=== PATIENT | female | born 1980 | race Caucasian/White ===

== ENCOUNTER 2017-06-05 15:29 | Inpatient (IN) | payer MEDICAID ==
[~2017-06-05] VITALS: Ht 157.5 cm; Wt 107.0 kg
[2017-06-05 16:46] LABS: microscopic required? NO
[2017-06-05 17:01] LABS: UA SPECIFIC GRAVITY 1.025 (1.005-1.035); urine erythrocyte NEGATIVE (NEGATIVE)
[2017-06-05 17:05] LABS: CALCIUM 9.3 mg/dL (8.5-10.1); CHLORIDE SERUM 105 mmol/L (98-107); GFR1 > 60 mL/min; GLUCOSE SERUM 96 mg/dL (74-106); POTASSIUM SERUM 4.3 mmol/L (3.5-5.1); SODIUM SERUM 144 mmol/L (136-145)
[2017-06-05 17:07] LABS: BASOPHIL % 0.3 % (0-2); PLATELET COUNT 235 x10^3mcL (130-400)
[2017-06-05 17:10] LABS: ALBUMIN 3.3 g/dL (3.4-5.0); ALKALINE PHOSPHATASE 97 U/L (46-116); ALT/SGPT 36 U/L (14-59); AST/SGOT 19 U/L (15-37); BILIRUBIN TOTAL 0.2 mg/dL (0.20-1.00); LIPASE 185 IU/L (73-393); TOTAL PROTEIN, SERUM 7.6 g/dL (6.4-8.2)
[2017-06-05 20:32] LABS: CHOLESTEROL/HDL RATIO 4.4; MAGNESIUM 2.1 mg/dL (1.8-2.4); PHOSPHOROUS 3.3 mg/dL (2.5-4.9)
[2017-06-05 20:35] LABS: AMPHETAMINE QUAL UR NONE DETECTED (NEG <=1000)
[2017-06-05 20:39] LABS: T3 TOTAL 1.3 ng/mL
[2017-06-05 20:45] LABS: FREE T4 1.02 ng/dL (0.76-1.46); FREE THYROXINE INDEX 2.3 ug/dL (1.4-4.5); T4(THYROXINE) 8.3 ug/dL (4.7-13.3)
[2017-06-05 21:35] VITALS: BP 116/59
[2017-06-06 06:14] VITALS: BP 117/46
[2017-06-06 06:15] LABS: BASOPHIL % 0.4 % (0-2); PLATELET COUNT 210 x10^3mcL (130-400)
[2017-06-06 06:29] LABS: RED CELL DISTRIBUTION WIDTH 14.9 % (11.5-14.5)
[2017-06-06 06:32] LABS: CALCIUM 8.5 mg/dL (8.5-10.1); CARBON DIOXIDE 27.3 mmol/L (21-32); CHLORIDE SERUM 111 mmol/L (98-107); CREATININE SERUM 0.9 mg/dL (0.6-1.0); GFR1 > 60 mL/min; GLUCOSE SERUM 92 mg/dL (74-106); POTASSIUM SERUM 4.8 mmol/L (3.5-5.1); SODIUM SERUM 146 mmol/L (136-145)
[2017-06-06 08:23] VITALS: BP 113/47
[2017-06-06 17:34] VITALS: BP 124/57
[2017-06-06 20:31] VITALS: BP 112/56
[2017-06-07 04:54] VITALS: BP 110/55
[2017-06-07 06:17] LABS: BASOPHIL % 0.2 % (0-2); PLATELET COUNT 205 x10^3mcL (130-400)
[2017-06-07 06:28] LABS: CALCIUM 8.5 mg/dL (8.5-10.1); CARBON DIOXIDE 22.8 mmol/L (21-32); CHLORIDE SERUM 107 mmol/L (98-107); CREATININE SERUM 0.9 mg/dL (0.6-1.0); GFR1 > 60 mL/min; GLUCOSE SERUM 94 mg/dL (74-106); POTASSIUM SERUM 4.5 mmol/L (3.5-5.1); SODIUM SERUM 139 mmol/L (136-145)
[2017-06-07 06:46] LABS: RED CELL DISTRIBUTION WIDTH 14.9 % (11.5-14.5)
[2017-06-07 08:10] VITALS: BP 124/55
[2017-06-07 13:12] VITALS: BP 113/47
[2017-06-07 18:58] VITALS: BP 110/43
[2017-06-07 21:03] VITALS: BP 94/59
[2017-06-08 06:07] VITALS: BP 132/66
[2017-06-08 06:46] LABS: CALCIUM 8.9 mg/dL (8.5-10.1); CARBON DIOXIDE 27.4 mmol/L (21-32); CHLORIDE SERUM 108 mmol/L (98-107); GFR1 > 60 mL/min; GLUCOSE SERUM 93 mg/dL (74-106); POTASSIUM SERUM 4.4 mmol/L (3.5-5.1); SODIUM SERUM 144 mmol/L (136-145)
[2017-06-08 06:54] LABS: BASOPHIL % 0.4 % (0-2); PLATELET COUNT 192 x10^3mcL (130-400)
[2017-06-08 07:09] LABS: RED CELL DISTRIBUTION WIDTH 15.1 % (11.5-14.5)
[2017-06-08 07:50] VITALS: BP 139/61
[2017-06-08 09:04] VITALS: BP 120/56
[2017-06-08 10:08] VITALS: Ht 157.5 cm; Wt 107.0 kg
[2017-06-08 14:13] VITALS: BP 139/62
[2017-06-08 17:06] VITALS: BP 109/47
[2017-06-08 20:00] VITALS: BP 142/58
[2017-06-09 04:53] VITALS: BP 127/72
[2017-06-09 09:28] VITALS: BP 108/69
[2017-06-09] MEDS ORDERED: NAP500 PO (09:35)
[2017-06-09] MEDS ORDERED: KEFLEX500 M1 PO (09:36)
[2017-06-09] MEDS ORDERED: BD LACTINEX1.4 MG PO (09:37)
[2017-06-09 10:27] VITALS: BP 108/69
[2017-06-09] MEDS ORDERED: NOR10T PO (10:40)
== END 2017-06-09 11:40 | disposition home or self-care (01) | DRG 227 ==
LOC: ED 15:29 → DU 19:28 → MU 06-08 17:59
PROVIDERS: Emergency Medicine; Family Medicine Sports Medicine; Surgery
PROC: 0WUF0JZ Supplement Abdominal Wall with Synthetic Substitute, Open Approach (ICD-10-PCS; principal; 2017-06-06 10:00)
DX: K43.9 Ventral hernia without obstruction or gangrene (principal); E87.0 Hyperosmolality and hypernatremia; I10 Essential (primary) hypertension; F17.210 Nicotine dependence, cigarettes, uncomplicated; E78.5 Hyperlipidemia, unspecified; E78.1 Pure hyperglyceridemia; E86.0 Dehydration; E44.1 Mild protein-calorie malnutrition; D64.9 Anemia, unspecified; Z68.42 Body mass index [BMI] 45.0-49.9, adult; Z90.49 Acquired absence of other specified parts of digestive tract; Z90.5 Acquired absence of kidney; Z90.710 Acquired absence of both cervix and uterus; Z83.3 Family history of diabetes mellitus; Z85.53 Personal history of malignant neoplasm of renal pelvis
CPT/HCPCS: 84439; 94150; C1781; J0330; J0690; J1644; J2250; J2270; J2405; J2704; J2710; J3010; J3490; J7030; J7120; J8597

== ENCOUNTER 2018-04-10 13:43 | Emergency (ER) | payer MEDICAID ==
[~2018-04-10] VITALS: Ht 157.5 cm; Wt 99.3 kg
[~2018-04-10 13:43] MED LIST: BD LACTINEX1.4 MG PO; KEFLEX500 M1 PO; NAP500 PO; NOR10T PO
[2018-04-10 13:45] VITALS: Ht 157.5 cm; Wt 99.3 kg
[2018-04-10 15:48] LABS: microscopic required? NO
[2018-04-10 16:03] LABS: BASOPHIL % 1.1 % (0-2); PLATELET COUNT 237 x10^3mcL (130-400); RED CELL DISTRIBUTION WIDTH 14.3 % (11.5-14.5)
[2018-04-10 16:08] LABS: CALCIUM 8.8 mg/dL (8.5-10.1); CARBON DIOXIDE 28.1 mmol/L (21-32); CREATININE SERUM 1.1 mg/dL (0.6-1.0); POTASSIUM SERUM 4.5 mmol/L (3.5-5.1)
[2018-04-10 16:11] LABS: UA SPECIFIC GRAVITY 1.015 (1.005-1.035); urine erythrocyte NEGATIVE (NEGATIVE)
[2018-04-10 16:12] LABS: ALBUMIN 3.3 g/dL (3.4-5.0); BILIRUBIN TOTAL 0.3 mg/dL (0.20-1.00); TOTAL PROTEIN, SERUM 7.7 g/dL (6.4-8.2)
[2018-04-10 20:54] VITALS: BP 106/68
== END 2018-04-10 20:54 | disposition left against medical advice (07) ==
LOC: ED 13:43
PROVIDERS: Emergency Medicine
DX: R51 Headache (principal); R42 Dizziness and giddiness; R11.10 Vomiting, unspecified; H57.89 Other specified disorders of eye and adnexa; I10 Essential (primary) hypertension; Z90.89 Acquired absence of other organs
CPT/HCPCS: J1885; J2270; J2765

== ENCOUNTER 2019-02-17 23:55 | Emergency (ER) | payer SELFPAY ==
[~2019-02-17] VITALS: Ht 167.6 cm; Wt 101.6 kg
[2019-02-18 00:02] VITALS: Ht 167.6 cm; Wt 101.6 kg
[2019-02-18 00:40] LABS: BASOPHIL % 1.3 % (0-2); PLATELET COUNT 222 x10^3mcL (130-400); RED CELL DISTRIBUTION WIDTH 14.5 % (11.5-14.5)
[2019-02-18 00:58] LABS: CALCIUM 8.4 mg/dL (8.5-10.1); CHLORIDE SERUM 105 mmol/L (98-107); GFR1 > 60 mL/min; GLUCOSE SERUM 108 mg/dL (74-106); POTASSIUM SERUM 3.9 mmol/L (3.5-5.1); SODIUM SERUM 139 mmol/L (136-145)
[2019-02-18 01:02] LABS: ALKALINE PHOSPHATASE 108 U/L (46-116); ALT/SGPT 27 U/L (14-59); AST/SGOT 13 U/L (15-37); BILIRUBIN TOTAL 0.18 mg/dL (0.20-1.00); TOTAL PROTEIN, SERUM 7.2 g/dL (6.4-8.2)
[2019-02-18 01:04] LABS: ALBUMIN 3.1 g/dL (3.4-5.0)
[2019-02-18 03:26] VITALS: BP 117/65
== END 2019-02-18 03:26 | disposition home or self-care (01) ==
LOC: ED 23:55
PROVIDERS: Student in an Organized Health Care Education/Training Program
DX: G89.29 Other chronic pain (principal); M54.5 Low back pain; R10.814 Left lower quadrant abdominal tenderness; I10 Essential (primary) hypertension; Z98.890 Other specified postprocedural states
CPT/HCPCS: 36415; J1885; J2270; J2405

== ENCOUNTER 2019-07-07 18:48 | Emergency (ER) | payer MEDICAID ==
[~2019-07-07] VITALS: Ht 157.5 cm; Wt 77.1 kg
[2019-07-07 19:10] VITALS: Ht 157.5 cm; Wt 77.1 kg
[2019-07-07 21:22] VITALS: BP 135/57
== END 2019-07-07 21:22 | disposition home or self-care (01) ==
LOC: ED 18:48
DX: M79.641 Pain in right hand (principal); I10 Essential (primary) hypertension; Z98.890 Other specified postprocedural states
CPT/HCPCS: Q0162